=== PATIENT | male | born 1995 | race African-American/Black ===

== ENCOUNTER 2019-06-23 13:11 | Emergency (ER) | payer MEDICAID ==
[~2019-06-23] VITALS: Ht 175.3 cm; Wt 76.7 kg
[2019-06-23] MEDS ORDERED: FAMOTIDINE 20 MG TAB PO ONE (16:45)
[2019-06-23] MEDS ORDERED: ONDANSETRON ODT 4 MG TAB PO ONE (16:45)
[2019-06-23 17:29] VITALS: BP 132/94
== END 2019-06-23 17:48 | disposition home or self-care (01) ==
LOC: ER 13:27
DX: K29.00 Acute gastritis without bleeding (principal); F17.210 Nicotine dependence, cigarettes, uncomplicated
CPT/HCPCS: 99283; Q0162

== ENCOUNTER 2021-07-23 22:36 | Emergency (ER) | payer MEDICAID ==
[~2021-07-23] VITALS: Ht 172.7 cm; Wt 86.2 kg
[2021-07-24 01:07] VITALS: BP 132/102
== END 2021-07-24 01:38 | disposition home or self-care (01) ==
LOC: ER 22:36
DX: J03.80 Acute tonsillitis due to other specified organisms (principal); B96.89 Other specified bacterial agents as the cause of diseases classified elsewhere; R09.81 Nasal congestion; R05.9 Cough, unspecified; F17.210 Nicotine dependence, cigarettes, uncomplicated

== ENCOUNTER 2021-08-01 17:58 | Emergency (ER) | payer MEDICAID ==
[~2021-08-01] VITALS: Ht 177.8 cm; Wt 86.2 kg
[2021-08-01] MEDS: ACETAMINOPHEN 325 MG TAB PO ONE (18:37)
[2021-08-01 22:01] VITALS: BP 141/83
== END 2021-08-01 22:14 | disposition home or self-care (01) ==
LOC: ER 17:58
DX: U07.1 COVID-19 (principal); F17.210 Nicotine dependence, cigarettes, uncomplicated
CPT/HCPCS: 36415; 71045; 87426